=== PATIENT | male | born 1940 | race Caucasian/White ===

== ENCOUNTER 2016-09-15 07:11 | Day surgery (SDC) | payer MEDICARE, OTHER ==
--- NOTE | ~2016-09-15 | EGD ---
EGD REPORT [facility] [address] [address] NAME: MATT LAWRENCE : [birth year] STATUS : REG [facility]#: [id number] AGE: 76 ADM/REG DATE : 09/15/16 MR#: [id number] REPORT SERV DATE: 09/15/16 DICTATED BY: REJI RUBIO DATE: 09/15/16 REPORT STATUS : Draft TRANSCRIBED BY: [facility] DATE: 09/15/16 [facility] Patient Name: Matt Lawrence Date of : 1940 Attending MD: REJI RUBIO MD Procedure Date No Time: 09/15/2016 Procedure: Upper GI endoscopy Indications: Heartburn; Nexium OTC. Patient Profile: Informed consent was obtained from the patient by me prior to the procedure. Risks, benefits, and alternatives were discussed including the risk of bleeding, perforation, infection, reaction to medicine, missed lesion, and cardiopulmonary complications. Referring MD: KINGSTON JOHNSON Medicines: Monitored Anesthesia Care Complications: No immediate complications. Procedure: Pre-Anesthesia Assessment: - ASA Grade Assessment: III - A patient with severe systemic disease. After obtaining informed consent, the endoscope was passed under direct vision. Throughout the procedure, the patient's blood pressure, pulse, and oxygen saturations were monitored continuously. The GIF [id number] was introduced through the mouth, and advanced to the second part of duodenum. The endoscope was withdrawn with careful examination all mucosal surfaces including retroflexion stomach. The upper GI endoscopy was accomplished without difficulty. The patient tolerated the procedure well. Findings: The first part of the duodenum and 2nd part of the duodenum were normal. Biopsies were taken with a cold forceps for histology. A single 5 mm sessile polyp with was found in the first part of the duodenum. The polyp was removed with a cold biopsy forceps. Resection and retrieval were complete. Localized mildly erythematous mucosa was found in the gastric antrum. Biopsies were taken with a cold forceps for histology. The cardia, gastric body and gastric fundus (on retroflexion) were normal. The examined esophagus was normal except diverticulum at 28cm. The esophagus and gastroesophageal junction were examined with white light. There was no visual evidence of Will's esophagus. Impression: - Normal first part of the duodenum and 2nd part of the EGD REPORT [address] [address] NAME: MATT LAWRENCE : [birth year] STATUS : REG [facility]#: [id number] AGE: 76 ADM/REG DATE : 09/15/16 MR#: [id number] REPORT SERV DATE: 09/15/16 DICTATED BY: REJI RUBIO DATE: 09/15/16 REPORT STATUS : Draft TRANSCRIBED BY: [employer] DATE: 09/15/16 duodenum. Biopsied. - A single duodenal polyp. Resected and retrieved. - Erythematous mucosa in the antrum. Biopsied. - Normal cardia, gastric body and gastric fundus. - Normal esophagus. - There is no endoscopic evidence of Will's esophagus. Recommendation: - Patient has a contact number available for emergencies. The signs and symptoms of potential delayed complications were discussed with the patient. Return to normal activities tomorrow. Written discharge instructions were provided to the patient. - Regular diet. - Continue present medications. - Await pathology results. - Taper Nexium to use as needed, as tolerated. Procedure Code(s): --- Professional --- 25297, Esophagogastroduodenoscopy, flexible, transoral; with biopsy, single or multiple Diagnosis Code(s): --- Professional --- K31.7, Polyp of stomach and duodenum K31.9, Disease of stomach and duodenum, unspecified R12, Heartburn CPT copyright 2013 [employer]. All rights reserved. The codes documented in this report are preliminary and upon strategic debriefing officer review may be revised to meet current compliance requirements. REJI RUBIO MD 09/15/2016 9:14 AM This report has been signed electronically. Number of Addenda: 0 Note Initiated On: 09/15/2016 8:39 AM Scope Withdrawal Time 0 hours 0 minutes 0 seconds [address] [id number]
[~2016-09-15 07:11] MED LIST: ACET500CAP PO; ACIDOPHILU1 PO; ACIDOPHILUS PO; ADVIL PO; ALA-CORT1 % EX; ALEVE220 MG PO; ALIGN PO; ASAB PO; B COMPLETE PO; BEANO PO; BENTYL10 PO; CENTRUM PO; CENTRUM TAB1 TAB PO; CITRUCEL PO; CLARIT10 PO; COQ10100 MG OR; COQ10100 MG PO; CRESTOR10 PO; CYANO1000T PO; CYMBALTA60 PO; DEXMETHYLPHENIDATE PO; DITRO5 PO; DOLOPHINE5 MG PO; EFFEXOR XR150 MG PO; FISH-EPA1000 MG PO; FLOMAX4 PO; FOCALIN XR20 MG PO; GAS-X80 MG PO; GENTAK0.3 % OPH; GLUCCHONDR PO; GLUCOSAMINE PO; GLUCOSAMINE SULFATE PO; IBU-200200 MG PO; IMOD PO; IRON PO; LACTASE PO; LOM PO; LYRICA150 MG PO; MACRO50B PO; MEDS; MINERAL ICE EX; MIRALAXPKT PO; MULTIVITAMI1 PO; NABUMETONE750 MG PO; NEUR300 PO; NEUR800 PO; NEXIUM40 PO; OS500+D PO; OXYBUTYNIN; PATADAY; PCET PO; POT GLUCONAT550 M1 OR; POT GLUCONAT550 M1 PO; POTASSIUM GLUCO99 MG PO; PRAV10 PO; PRAVAC PO; PRILO PO; PROBIATA PO; PROBIOTIC PO; PROLOP100 PO; PROSCAR5 PO; PROTONIX PO; SINGULAIR1 PO; SURBEX/C1 TAB PO; TINACTIN11 EX; TUSSIN DM1 M1 PO; ULTRAM50 PO; V5 PO; VERAMYST27.5 MCG NAS; VITAMIN B-625 MG OR; VITAMIN D1000 UNI1 PO; VITAMIN D31000 UNIT PO; VOLTAREN1 % TOP; WELCHOL625 MG OR; XIFAXAN550 MG PO; ZINC LOZENGES PO; [UNRECOGNIZED DRUG - CODE] OR; [UNRECOGNIZED DRUG - OTHER] PO
== END 2016-09-15 23:59 | disposition home or self-care (01) ==
LOC: DMU 07:11
PROVIDERS: Internal Medicine Gastroenterology
PROC: 0DB68ZX Excision of Stomach, Via Natural or Artificial Opening Endoscopic, Diagnostic (ICD-10-PCS; 2016-09-15)
PROC: 0DB98ZX Excision of Duodenum, Via Natural or Artificial Opening Endoscopic, Diagnostic (ICD-10-PCS; principal; 2016-09-15 08:30)
DX: K29.50 Unspecified chronic gastritis without bleeding (principal); K29.80 Duodenitis without bleeding; K21.9 Gastro-esophageal reflux disease without esophagitis; F32.9 Major depressive disorder, single episode, unspecified; G47.33 Obstructive sleep apnea (adult) (pediatric); E78.5 Hyperlipidemia, unspecified; G62.9 Polyneuropathy, unspecified; Z99.89 Dependence on other enabling machines and devices; I73.00 Raynaud's syndrome without gangrene; Z79.1 Long term (current) use of non-steroidal anti-inflammatories (NSAID); Z79.82 Long term (current) use of aspirin; Z79.899 Other long term (current) drug therapy; Z88.8 Allergy status to other drugs, medicaments and biological substances; Z98.890 Other specified postprocedural states; Z96.653 Presence of artificial knee joint, bilateral; Z90.89 Acquired absence of other organs
CPT/HCPCS: 88305; 88342; J2405